=== PATIENT | female | born 1945 | race African-American/Black ===

== ENCOUNTER 2017-10-21 16:03 | Emergency (ER) | payer SELFPAY ==
[2017-10-21 16:04] VITALS: BP 127/80; PULSE 109; RESP 16; TEMP 37.4; O2SAT 99; BMI 26.8
--- NOTE | 2017-10-21 16:27 | ED.VISSUMM ---
- ER Visit Summary Date of Service: 10/21/17 Chief Complaint: Left leg pain and swelling History of Present Illness: The patient is a 72 F who recently moved to the from [facility]. She had a long plane ride on September 20. Patient is also currently being evaluated for cervical cancer and is seeing Dr. Bain at [facility]. Patient has been having waxing and waning left lower leg pain and swelling for the last 1 month. She states at times the calf will get very firm and painful. She has no symptoms above the knee. She denies chest pain or shortness of breath. She denies any recent injury. Physical Examination: Vital signs are grossly unremarkable. Heart rate triage was documented at 109. Head neck examination is unremarkable. Heart is regular rate and rhythm. Lung sounds are clear. Abdomen is soft with no tenderness. Firm masses palpable in the left lower quadrant. Lower extremity examination reveals mild edema to the lower portion of the left lower leg. There is no erythema or excessive warmth. She has full range of motion and strong pulses throughout. Test Results: [] Emergency Department Course and Treatment: Patient presents on a Monday afternoon when I do not have venous ultrasound available. This was discussed with patient and son at bedside. Should be written orders to come back tomorrow for an outpatient ultrasound. Patient is currently having vaginal bleeding and is already being treated for anemia. At this time we will hold off on any anticoagulants as all of her symptoms are below the knee. This was discussed at length with the patient and her son. Treatment Plan: [] Disposition: Discharge Impression: Left lower extremity edema This note was generated with [employer] dictation software. It may contain incorrect words, spelling, and punctuation that were not noted in review of the chart prior to signing ED Disposition - Plan for ED Patient: Chief Complaint: Lower Extremity Injury Referrals: Care Physician,No Primary [Primary Care Provider] -
--- NOTE | 2017-10-21 16:30 | ED.DEP ---
ED Disposition - Plan for ED Patient: Disposition: Home or Assisted Living Chief Complaint: Lower Extremity Injury Instructions: ED Leg Swelling Unilateral Additional Instructions: An order has been written for you to return tomorrow for an ultrasound of your leg to ensure no blood clot is present. Someone from the hospital will call you tomorrow morning with an appointment time.
== END 2017-10-21 17:11 | disposition home or self-care (01) ==
PROVIDERS: Emergency Provider Emergency Medicine
DX: R60.0 Localized edema (principal); M79.662 Pain in left lower leg; C53.9 Malignant neoplasm of cervix uteri, unspecified
CPT/HCPCS: 99282

== ENCOUNTER → 2017-10-23 10:41 | Outpatient (CLI) | payer SELFPAY ==
--- NOTE | 2017-10-23 10:44 | VDLE_ITS ---
Reason For Study: LEG PAIN RIGHT LEFT CFV is compressible, spontaneous, phasic, GSV is normal. competent and demonstrates normal CFV is compressible, spontaneous, phasic, augmentation. competent, and demonstrates normal Procedure augmentation. Exam performed in department. FV is compressible, spontaneous, phasic, competent and demonstrates normal augmentation. POP V is compressible, spontaneous, phasic, competent and demonstrates normal augmentation. T/P Trunk is compressible. PTV is compressible. LT PerV is compressible. Soleus vein dilated and non-compressible. Interpretation Summary Acute deep venous thrombosis left soleus vein. Patent and compressible left great saphenous vein. Normal flow patterns right common femoral vein. Ordering Physician: Sarah Cuevas Referring Physician: Sarah Cuevas Performed By: Tracey Matthews RVT
== END ==
PROVIDERS: Visit Provider Emergency Medicine
DX: R60.0 Localized edema (principal)
CPT/HCPCS: 93971

== ENCOUNTER 2017-10-23 11:07 | Emergency (ER) | payer SELFPAY ==
[2017-10-23 11:08] VITALS: BP 148/77; PULSE 105; RESP 17; TEMP 37.3; O2SAT 100; BMI 26.3
--- NOTE | 2017-10-23 12:36 | ED.VISSUMM ---
- ER Visit Summary Date of Service: 10/23/17 Chief Complaint: Leg DVT History of Present Illness: The patient is a 72 F who was seen on 324. She was set up for a duplex ultrasound. She had that performed today which demonstrates a peroneal DVT on the left. Patient is currently being evaluated for treatment of cervical cancer by Dr. Bain at [facility]. Her [id number] Dr. Chas Mcgarry is an WEIGHT ANALYST here at our hospital. Patient denies any chest pain or shortness of breath. She is currently having vaginal bleeding which she describes as spotting. Physical Examination: Afebrile vital signs are stable Gen: Well-nourished well-developed Head: Normocephalic atraumatic Eyes: Perrl EOMI ENT: TMs clear no rhinorrhea moist mucous membranes Neck: Supple no lymphadenopathy no JVD nontender CVS: Regular rate rhythm no murmurs normal S1-S2 Respiratory: No distress clear to auscultation bilaterally chest nontender Abdomen: Soft nontender nondistended normal bowel sounds no masses Back: Nontender Extremity: Is mild swelling the left leg. There is some mild tenderness to the calf. Skin: Normal color no rash Neuro: alert orientated ?3 CN II-XII intact normal strength sensation reflexes gait cerebellar Psych: Normal affect normal mood Test Results: The duplex ultrasound was reviewed Emergency Department Course and Treatment: The DVT appears below the knee. She has been taking a baby aspirin and will increase that to a full strength aspirin. As it is below the knee we will do serial ultrasounds. I spoke with Dr. Chas Mcgarry. I attempted to page and contact Dr. Bain but did not a call back yet. I provided a copy of the ultrasound to the patient to take to her oncologist appointment. Impression:. Left peroneal DVT This note was generated with [employer] dictation software. It may contain incorrect words, spelling, and punctuation that were not noted in review of the chart prior to signing ED Disposition - Plan for ED Patient: Disposition: Home or Assisted Living Chief Complaint: Lower Extremity Injury Instructions: ED DVT Referrals: Care Physician,No Primary [Primary Care Provider] - Additional Instructions: We will up with your oncologist Begin full strength aspirin daily You will need repeat ultrasound on October 26, October 30, and November 07. Unless the DVT propagates to above the knee then you will need to begin anticoagulant therapy. If DVT above the knee is diagnosed either follow-up with your oncologist or the emergency room for care.
[2017-10-23 12:59] VITALS: PULSE 94; RESP 16; O2SAT 97
== END 2017-10-23 13:11 | disposition home or self-care (01) ==
PROVIDERS: Emergency Provider Emergency Medicine
DX: I82.4Z2 Acute embolism and thrombosis of unspecified deep veins of left distal lower extremity (principal); C53.9 Malignant neoplasm of cervix uteri, unspecified; Z79.82 Long term (current) use of aspirin
CPT/HCPCS: 99282

== ENCOUNTER 2017-10-26 13:45 | Emergency (ER) | payer SELFPAY ==
[2017-10-26 13:46] VITALS: BP 117/54; PULSE 103; RESP 16; TEMP 37.2; O2SAT 99; BMI 26.6
--- NOTE | 2017-10-26 14:10 | RAD_ITS ---
STUDY: X-RAY - LUMBAR SPINE REASON FOR EXAM: Female, 72 years old. Low back pain TECHNIQUE: Three view(s) of the lumbar spine were obtained. COMPARISON: None FINDINGS: Normal lumbar lordosis. There is moderate dextroscoliosis. There is normal alignment of the vertebrae. There are small osteophytes scattered in the lumbar spine. Vertebral body heights are maintained. There is moderate disc space narrowing at L3-4 and L5-S1. There are large coarse calcifications in the lower abdomen and pelvis. There are nodular densities in the visualized lung bases. There is a 2.8 cm round calcification in the mid right abdomen. RAD/Lumbar Spine 2 or 3 Views IMPRESSION: No acute abnormalities are seen in the lumbar spine. There are no compression fractures. There are moderate degenerative disc changes at L3-4 and L5-S1. There are large coarse dystrophic calcifications in the lower abdomen and pelvis with a typical appearance of degenerated fibroids. Extension into the lower abdomen suggests marked enlargement of the uterus. There are nodular opacities in the visualized lung bases of unknown etiology. Chest radiographs and a possible chest CT should be considered. There is a 2.8 cm calcification in the mid right abdomen, likely a gallstone. Electronically Signed: Sarah Winter MD at 15:39 EDT Tel Direct: [phone], Service support ,
--- NOTE | 2017-10-26 14:41 | ED.VISSUMM ---
- ER Visit Summary Date of Service: 10/26/17 Chief Complaint: Left hip pain History of Present Illness: The patient is a 72 F who presents with left hip pain. When asked to localize where she has discomfort she points to the superior posterior iliac spine. She denies bowel bladder dysfunction. She denies saddle paresthesia anesthesia. She denies radicular pain. She denies foot drop. She denies thigh weakness going up or down steps. There is no history of trauma. She denies fever, chills night sweats. She denies prior episode of discomfort. She denies history of any medical problems. She was recently diagnosed with a solitary distal clot in the peroneal vein. She has serial venous duplex studies ordered. She denies dysuria, frequency, urgency or hematuria. Physical Examination: Vital signs are remarkable for slight elevation blood pressure 103. She appears in no discomfort and reports she has no pain presently. Straight leg test is negative. Crossover test is negative. Patella and ankle reflexes are 2+ and symmetric. EHL is intact. DP and PT pulses are palpable and symmetric. She has minimal discomfort left lower back to palpation. She denies any altered sensation. Abdomen is soft nontender. There is no past medically. There is no rash or lesions to suggest herpes varicella-zoster. There is no evidence of trauma. Test Results: Three-view x-ray of the LS spine was obtained which reveals scoliosis and significant degenerative disc disease with spurring. Also significant amount of stool and concerned she may have had a contrast study recently. Emergency Department Course and Treatment: Based on patient's age findings x-ray was obtained. Treatment Plan: Since she is elderly was instructed to take Tylenol since she has no pain at the present time if the pain recurs. Disposition: Discharge to home Impression: Left low back pain of muscular etiology Scoliosis Degenerative disc disease This note was generated with [employer] dictation software. It may contain incorrect words, spelling, and punctuation that were not noted in review of the chart prior to signing ED Disposition - Plan for ED Patient: Disposition: Home or Assisted Living Chief Complaint: Lower Extremity Injury Instructions: Osteoarthritis: Coping with Pain, Osteoarthritis: Common Sites Referrals: Care Physician,No Primary [Primary Care Provider] - Annabelle Franco DO [STAFF PHYSICIAN] - As Needed Additional Instructions: Take Tylenol for pain
--- NOTE | 2017-10-26 14:47 | ED.DCSUM_ITS ---
- ER Visit Summary Date of Service: 10/26/17 Chief Complaint: Left hip pain History of Present Illness: The patient is a 72 F who presents with left hip pain. When asked to localize where she has discomfort she points to the superior posterior iliac spine. She denies bowel bladder dysfunction. She denies saddle paresthesia anesthesia. She denies radicular pain. She denies foot drop. She denies thigh weakness going up or down steps. There is no history of trauma. She denies fever, chills night sweats. She denies prior episode of discomfort. She denies history of any medical problems. She was recently diagnosed with a solitary distal clot in the peroneal vein. She has serial venous duplex studies ordered. She denies dysuria, frequency, urgency or hematuria. Physical Examination: Vital signs are remarkable for slight elevation blood pressure 103. She appears in no discomfort and reports she has no pain presently. Straight leg test is negative. Crossover test is negative. Patella and ankle reflexes are 2+ and symmetric. EHL is intact. DP and PT pulses are palpable and symmetric. She has minimal discomfort left lower back to palpation. She denies any altered sensation. Abdomen is soft nontender. There is no past medically. There is no rash or lesions to suggest herpes varicella-zoster. There is no evidence of trauma. Test Results: Three-view x-ray of the LS spine was obtained which reveals scoliosis and significant degenerative disc disease with spurring. Also significant amount of stool and concerned she may have had a contrast study recently. Emergency Department Course and Treatment: Based on patient's age findings x- ray was obtained. Treatment Plan: Since she is elderly was instructed to take Tylenol since she has no pain at the present time if the pain recurs. Disposition: Discharge to home Impression: Left low back pain of muscular etiology Scoliosis Degenerative disc disease This note was generated with [employer] dictation software. It may contain incorrect words, spelling, and punctuation that were not noted in review of the chart prior to signing ED Disposition - Plan for ED Patient: Disposition: Home or Assisted Living Chief Complaint: Lower Extremity Injury Instructions: Osteoarthritis: Coping with Pain, Osteoarthritis: Common Sites Referrals: Care Physician,No Primary [Primary Care Provider] - Annabelle Franco DO [STAFF PHYSICIAN] - As Needed Additional Instructions: Take Tylenol for pain
--- NOTE | 2017-10-26 14:59 | ED.RN ---
REVIEWED D/C INSTRUCTIONS, FOLLOW UP CARE, AND S/S THAT WOULD WARRANT A RETURN TO THE ED WITH PT. PT VERBALIZED AN UNDERSTANDING AND DENIES FURTHER QUESTIONS FOR THIS RN.
[2017-10-26 15:08] VITALS: PULSE 92; RESP 16
== END 2017-10-26 15:15 | disposition home or self-care (01) ==
PROVIDERS: Emergency Provider Emergency Medicine
DX: M41.87 Other forms of scoliosis, lumbosacral region (principal); M51.37 Other intervertebral disc degeneration, lumbosacral region; Z79.82 Long term (current) use of aspirin
CPT/HCPCS: 72100; 99282

== ENCOUNTER 2017-10-30 14:30 | Observation (INO) | payer SELFPAY ==
[2017-10-30 14:31] VITALS: BP 111/62; PULSE 95; RESP 16; TEMP 36.8; O2SAT 100; BMI 26.4
--- NOTE | 2017-10-30 15:06 | ED.VISSUMM ---
- ER Visit Summary Date of Service: 10/30/17 Chief Complaint: Left lower extremity pain History of Present Illness: The patient is a 72 F who was diagnosed with a DVT a week ago, it was in her distal calf, she has cervical cancer that is recently diagnosed and still in the process of being staged, she has follow-up appointments set for that, and she traveled to the [facility] from [facility] 1-2 months ago. She was supposed to get serial ultrasounds, she missed the second one, and had it done today, it shows extension of the clot from the left soleus vein now involving the gastroc and peroneal as well. The right side is clear. She states the swelling she had in the left lower extremity is gone, she still has some mild pain but no chest pain or shortness of breath, lightheadedness. She is taking aspirin and no anticoagulants at this time. She has light daily vaginal bleeding related to her cervical cancer, she is bleeding from nowhere else. She otherwise feels well. Physical Examination: Well-appearing no acute distress. Vital signs are normal including heart rate 95, respirations 16, pulse ox 100 on room air. She has trace edema both lower extremities to the mid shins, mild calf tenderness on the left no palpable cords, otherwise benign and neurovascularly intact distally with full range of motion of both lower extremities. Lungs are clear, heart is regular without tachycardia. Test Results: Hemoglobin 7.0. Basic labs obtained. Emergency Department Course and Treatment: Discussed with Dr. Bain, her gynecologic oncologist at [facility], who agrees that she should probably have an IVC filter, given that she is already anemic and has constant bleeding from a site that would be difficult to control the bleeding from. Discussed with Dr. Pathak with surgery here, who does IVC filters and would be happy to place one for her. Soonest availability is tomorrow, she is stable and does have a relatively distal DVT, testing shows that it has progressed, but it is still distal to the trifurcation so waiting until tomorrow is certainly reasonable. I discussed with her family, with whom she lives, they are both physicians and it will be difficult for them to get her here at the right time tomorrow, so they are asking for inpatient observation, discussed with Dr. Dean who is amenable. Of note, she is clinically and hemodynamically very stable, and I do not think needs to be emergently transfused at this time. Treatment Plan: As above Disposition: Inpatient observation MedSurg Impression: Left lower extremity DVT acute Abnormal cervical bleeding secondary to cervical cancer Chronic blood loss anemia This note was generated with [employer] dictation software. It may contain incorrect words, spelling, and punctuation that were not noted in review of the chart prior to signing ED Disposition - Plan for ED Patient: Disposition: Acute Care Hospital [facility] Chief Complaint: Lower Extremity Injury Referrals: NOT,DEFINED [NON-STAFF] -
--- NOTE | 2017-10-30 15:10 | ED.DCSUM_ITS ---
- ER Visit Summary Date of Service: 10/30/17 Chief Complaint: Left lower extremity pain History of Present Illness: The patient is a 72 F who was diagnosed with a DVT a week ago, it was in her distal calf, she has cervical cancer that is recently diagnosed and still in the process of being staged, she has follow-up appointments set for that, and she traveled to the [facility] from [facility] 1- 2 months ago. She was supposed to get serial ultrasounds, she missed the second one, and had it done today, it shows extension of the clot from the left soleus vein now involving the gastroc and peroneal as well. The right side is clear. She states the swelling she had in the left lower extremity is gone, she still has some mild pain but no chest pain or shortness of breath, lightheadedness. She is taking aspirin and no anticoagulants at this time. She has light daily vaginal bleeding related to her cervical cancer, she is bleeding from nowhere else. She otherwise feels well. Physical Examination: Well-appearing no acute distress. Vital signs are normal including heart rate 95, respirations 16, pulse ox 100 on room air. She has trace edema both lower extremities to the mid shins, mild calf tenderness on the left no palpable cords, otherwise benign and neurovascularly intact distally with full range of motion of both lower extremities. Lungs are clear, heart is regular without tachycardia. Test Results: Hemoglobin 7.0. Basic labs obtained. Emergency Department Course and Treatment: Discussed with Dr. Bain, her gynecologic oncologist at [facility], who agrees that she should probably have an IVC filter, given that she is already anemic and has constant bleeding from a site that would be difficult to control the bleeding from. Discussed with Dr. Pathak with surgery here, who does IVC filters and would be happy to place one for her. Soonest availability is tomorrow, she is stable and does have a relatively distal DVT, testing shows that it has progressed, but it is still distal to the trifurcation so waiting until tomorrow is certainly reasonable. I discussed with her family, with whom she lives, they are both physicians and it will be difficult for them to get her here at the right time tomorrow, so they are asking for inpatient observation, discussed with Dr. Dean who is amenable. Of note, she is clinically and hemodynamically very stable, and I do not think needs to be emergently transfused at this time. Treatment Plan: As above Disposition: Inpatient observation MedSurg Impression: Left lower extremity DVT acute Abnormal cervical bleeding secondary to cervical cancer Chronic blood loss anemia This note was generated with [employer] dictation software. It may contain incorrect words, spelling, and punctuation that were not noted in review of the chart prior to signing ED Disposition - Plan for ED Patient: Disposition: Acute Care Hospital [facility] Chief Complaint: Lower Extremity Injury Referrals: NOT,DEFINED [NON-STAFF] -
[2017-10-30 17:23] LABS: Absolute Lymphocyte Count 2.37 X10^3/ul (0.83-4.51); Absolute Neutrophil Count 9.6 X10^3/uL (2.0-7.7); Basophil# 0.03 X10^3/uL; Basophil% 0.2 % (0-1); Eosinophil# 0.12 X10^3/uL; Eosinophils% 0.9 % (0-5); Hematocrit 23.9 % (37-47); Lymphocyte # 2.37 X10^3/ul (4.0); Lymphocyte % 18.2 % (19-41); Mean Corp Hgb Conc 29.3 g/gl (32-36); Mean Corpuscular Hgb 22.4 pg (27.0-32.0); Mean Corpuscular Volume 76.4 fL (81-99); Mean Platelet Vol. 9.4 fl (6.2-12.0); Monocyte# 0.94 X10^3/uL; Monocyte% 7.2 % (0-10); Neutrophil # 9.56 X10^3/uL (2.7-7.7); Neutrophil % 73.3 % (47-70); POSITIVE COUNT NO; POSITIVE DIFFERENTIAL NO; POSITIVE MORPHOLOGY NO; Platelet Count 349 K/mm3 (150-450); RBC Distribution Width CV 19.9 % (11.6-14.6); RBC Distribution Width SD 54.9 fl (35.1-43.9); Red Blood Count 3.13 M/mm3 (4.2-5.4); White Blood Count 13.1 K/mm3 (4.4-11.0)
[2017-10-30 17:32] LABS: Anion Gap 9 (5-15); BUN 9 mg/dL (7-18); BUN/Creat Ratio 11.7 RATIO (10-20); Calcium,Total 8.2 mg/dL (8.5-10.1); Chloride 101 mmol/L (98-107); Creatinine, Serum 0.77 mg/dL (0.55-1.02); EST Glomerular Filtration Rate 78 mL/min (>60); Est Glom Filt Rate - Afr Amer 95 mL/min (>60); Glucose 125 mg/dL (74-106); Potassium 4.4 mmol/L (3.5-5.1); Sodium Level 134 mmol/L (136-145)
--- NOTE | 2017-10-30 17:40 | PCM.HP.STD ---
Problem List (1) Acute DVT (deep venous thrombosis) Status: Acute Qualifiers: DVT location: lower extremity Affected thrombotic vein of extremity: unspecified lower extremity distal vein Laterality: left Qualified Code(s): I82.4Z2 - Acute embolism and thrombosis of unspecified deep veins of left distal lower extremity Comment: L soleus, gastroc, peroneal veins (2) Cervical cancer Status: Chronic Comment: being staged/treated at [facility] SILICA FILTER OPERATOR ONC Dr. Bain (3) Anemia Status: Acute Qualifiers: Iron deficiency anemia type: chronic blood loss History of Present Illness Date of Admission: 10/30/17 Chief Complaint: DVT The patient is a 72 year old F who is referred from outpatient ultrasound for management of LLE DVT. The patient has past history of cervical cancer, for which she is undergoing staging procedures with SILICA FILTER OPERATOR oncology at [facility], Dr. Bain. She had ultrasound left lower extremity 1 week ago which revealed distal calf DVT. She was to follow-up with serial ultrasounds, but missed the second one, had it done today, which revealed extension of the left lower extremity clot from the left soleus vein to now involving more proximal gastrocnemius and peroneal vein. Right lower extremity is clear. She denies any chest pain, pleuritic pain, dyspnea, lightheadedness, palpitations. She is currently on aspirin. She has daily vaginal bleeding related to cervical cancer, no other bleeding. She otherwise feels well. The emergency department physician kindly spoke with her SILICA FILTER OPERATOR oncologist at [facility], and an IVC filter was advised. This is scheduled for tomorrow morning by Dr. Pathak and the patient will be observed overnight for planned procedure.[] Past Medical History Past Medical History (Chronic Problems): Chronic Problems Cervical cancer (Chronic) being staged/treated at [facility] SILICA FILTER OPERATOR ONC Dr. Bain Allergies No Known Allergies Allergy (Verified 10/30/17 14:34) Home Medications: Ambulatory Orders Medication Instructions Recorded Aspirin 325 mg PO DAILY@0800 10/30/17 Psychiatric History: No pertinent psych hx SILICA FILTER OPERATOR History: cervical cancer Smoking Status: Never smoker - *Family History Maternal History Items: No pertinent history Paternal History Items: No pertinent history Review of Systems Gynecological: Reports: Vaginal bleeding Comment: as per HPI VTE Information - Inpt Only VTE Present on Admission: Yes - LLE DVT VTE Mechan Device Prophylaxis: None VTE Pharm Prophylaxis ordered?: No Reason prophylaxis not ordered:: Medical Contraindication - vag bleeding Patient Problems: Active and Suspected Problems Acute DVT (deep venous thrombosis) (Acute) L soleus, gastroc, peroneal veins Anemia (Acute) - Physical Exam General: Alert, Oriented x3 Neck: No JVD, Negative Carotid Bruits Lungs: Clear to auscultation Cardiovascular: Regular rate, Regular Rhythm, Normal S1, Normal S2, - - soft flow m over LVOT Extremities: - - L LE mildly tender mid calf cord palpable bilateral mild symmetric edema OA changes bilateral knees Vital Signs Temp Pulse Resp BP Pulse Ox 98.3 F 95 16 111/62 100 10/30/17 14:31 10/30/17 14:31 10/30/17 14:31 10/30/17 14:31 10/30/17 14:31 Oxygen Delivery Method Room Air Weight: 164 lb Body Mass Index (BMI) 26.4 Laboratory Tests Past 24 Hrs 10/30/17 10/30/17 16:50 16:50 WBC 13.1 H RBC 3.13 L Hgb 7.0 L Hct 23.9 L MCV 76.4 L MCH 22.4 L MCHC 29.3 L RDW 19.9 H RDW Differential 54.9 H Plt Count 349 MPV 9.4 Immature Gran % (Auto) 0.200 Neut % (Auto) 73.3 H Lymph % (Auto) 18.2 L [place] % (Auto) 7.2 Eos % (Auto) 0.9 Baso % (Auto) 0.2 Absolute Neuts (auto) 9.6 H Absolute Lymphs (auto) 2.37 Total Counted Not Reportable Sodium 134 L Potassium 4.4 Chloride 101 Carbon Dioxide 24.0 Anion Gap 9 BUN 9 Creatinine 0.77 Estim Creat Clear Calc 46.90 Est GFR (MDRD) Af Amer 95 Est GFR (MDRD) Non-Af 78 BUN/Creatinine Ratio 11.7 Glucose 125 H Calcium 8.2 L Assessment/Plan Active and Suspected Problems Acute DVT (deep venous thrombosis) (Acute) L soleus, gastroc, peroneal veins Anemia (Acute) Pleasant 72 y o patient with acute left lower extremity DVT in the setting of known cervical cancer, chronic vaginal bleeding, chronic blood loss anemia, who requires IVC filter placement for management. 1. Left lower extremity DVT 2. Chronic vaginal bleeding/chronic blood loss anemia. Asymptomatic in this regard Plan: Observe, medical supportive care overnight, n.p.o. post midnight, hydration post midnight, with planned placement of IVC filter tomorrow per Dr. Pathak Holding ASA
--- NOTE | 2017-10-30 17:45 | HP.PCM_ITS ---
Problem List (1) Acute DVT (deep venous thrombosis) Status: Acute Qualifiers: DVT location: lower extremity Affected thrombotic vein of extremity: unspecified lower extremity distal vein Laterality: left Qualified Code(s): I82.4Z2 - Acute embolism and thrombosis of unspecified deep veins of left distal lower extremity Comment: L soleus, gastroc, peroneal veins (2) Cervical cancer Status: Chronic Comment: being staged/treated at [facility] ACCELERATOR OPERATOR ONC Dr. Bain (3) Anemia Status: Acute Qualifiers: Iron deficiency anemia type: chronic blood loss History of Present Illness Date of Admission: 10/30/17 Chief Complaint: DVT The patient is a 72 year old F who is referred from outpatient ultrasound for management of LLE DVT. The patient has past history of cervical cancer, for which she is undergoing staging procedures with ACCELERATOR OPERATOR oncology at [facility], Dr. Bain. She had ultrasound left lower extremity 1 week ago which revealed distal calf DVT. She was to follow-up with serial ultrasounds, but missed the second one, had it done today, which revealed extension of the left lower extremity clot from the left soleus vein to now involving more proximal gastrocnemius and peroneal vein. Right lower extremity is clear. She denies any chest pain, pleuritic pain, dyspnea, lightheadedness, palpitations. She is currently on aspirin. She has daily vaginal bleeding related to cervical cancer, no other bleeding. She otherwise feels well. The emergency department physician kindly spoke with her ACCELERATOR OPERATOR oncologist at [facility], and an IVC filter was advised. This is scheduled for tomorrow morning by Dr. Pathak and the patient will be observed overnight for planned procedure.[] Past Medical History Past Medical History (Chronic Problems): Chronic Problems Cervical cancer (Chronic) being staged/treated at [facility] ACCELERATOR OPERATOR ONC Dr. Bain Allergies No Known Allergies Allergy (Verified 10/30/17 14:34) Home Medications: Ambulatory Orders Medication Instructions Recorded Aspirin 325 mg PO DAILY@0800 10/30/17 Psychiatric History: No pertinent psych hx ACCELERATOR OPERATOR History: cervical cancer Smoking Status: Never smoker - *Family History Maternal History Items: No pertinent history Paternal History Items: No pertinent history Review of Systems Gynecological: Reports: Vaginal bleeding Comment: as per HPI VTE Information - Inpt Only VTE Present on Admission: Yes - LLE DVT VTE Mechan Device Prophylaxis: None VTE Pharm Prophylaxis ordered?: No Reason prophylaxis not ordered:: Medical Contraindication - vag bleeding Patient Problems: Active and Suspected Problems Acute DVT (deep venous thrombosis) (Acute) L soleus, gastroc, peroneal veins Anemia (Acute) - Physical Exam General: Alert, Oriented x3 Neck: No JVD, Negative Carotid Bruits Lungs: Clear to auscultation Cardiovascular: Regular rate, Regular Rhythm, Normal S1, Normal S2, - - soft flow m over LVOT Extremities: - - L LE mildly tender mid calf cord palpable bilateral mild symmetric edema OA changes bilateral knees Vital Signs Temp Pulse Resp BP Pulse Ox 98.3 F 95 16 111/62 100 10/30/17 14:31 10/30/17 14:31 10/30/17 14:31 10/30/17 14:31 10/30/17 14:31 Oxygen Delivery Method Room Air Weight: 164 lb Body Mass Index (BMI) 26.4 Laboratory Tests Past 24 Hrs 10/30/17 10/30/17 16:50 16:50 WBC 13.1 H RBC 3.13 L Hgb 7.0 L Hct 23.9 L MCV 76.4 L MCH 22.4 L MCHC 29.3 L RDW 19.9 H RDW Differential 54.9 H Plt Count 349 MPV 9.4 Immature Gran % (Auto) 0.200 Neut % (Auto) 73.3 H Lymph % (Auto) 18.2 L [place] % (Auto) 7.2 Eos % (Auto) 0.9 Baso % (Auto) 0.2 Absolute Neuts (auto) 9.6 H Absolute Lymphs (auto) 2.37 Total Counted Not Reportable Sodium 134 L Potassium 4.4 Chloride 101 Carbon Dioxide 24.0 Anion Gap 9 BUN 9 Creatinine 0.77 Estim Creat Clear Calc 46.90 Est GFR (MDRD) Af Amer 95 Est GFR (MDRD) Non-Af 78 BUN/Creatinine Ratio 11.7 Glucose 125 H Calcium 8.2 L Assessment/Plan Active and Suspected Problems Acute DVT (deep venous thrombosis) (Acute) L soleus, gastroc, peroneal veins Anemia (Acute) Pleasant 72 y o patient with acute left lower extremity DVT in the setting of known cervical cancer, chronic vaginal bleeding, chronic blood loss anemia, who requires IVC filter placement for management. 1. Left lower extremity DVT 2. Chronic vaginal bleeding/chronic blood loss anemia. Asymptomatic in this regard Plan: Observe, medical supportive care overnight, n.p.o. post midnight, hydration post midnight, with planned placement of IVC filter tomorrow per Dr. Pathak Holding ASA
[2017-10-30 18:10] VITALS: BMI 26.5
[2017-10-30 18:14] VITALS: BP 137/73; PULSE 87; RESP 16; O2SAT 99
[2017-10-30 18:52] VITALS: BP 140/67; PULSE 92; RESP 18; TEMP 37.3; O2SAT 99
[2017-10-30 18:53] VITALS: BMI 26.1
[2017-10-30 19:27] VITALS: PULSE 95
[2017-10-30 20:52] VITALS: BP 133/63; PULSE 94; RESP 18; TEMP 37.1; O2SAT 100
[2017-10-30 23:27] VITALS: PULSE 98
[2017-10-31] VITALS (20 sets, daily range): BP systolic 122–152; BP diastolic 63–78; PULSE 82–94; RESP 16–20; TEMP 36.7–37.5; O2SAT 96–100; BMI 26.0
[2017-10-31 00:08] LABS: Hematocrit 20.9 % (37-47); Hemoglobin 6.1 g/dl (12.0-15.0); Mean Corp Hgb Conc 29.2 g/gl (32-36); Mean Corpuscular Hgb 22.4 pg (27.0-32.0); Mean Corpuscular Volume 76.8 fL (81-99); Mean Platelet Vol. 9.7 fl (6.2-12.0); Platelet Count 383 K/mm3 (150-450); RBC Distribution Width CV 19.6 % (11.6-14.6); RBC Distribution Width SD 52.3 fl (35.1-43.9); Red Blood Count 2.72 M/mm3 (4.2-5.4); Scan Indicated on CBC? Y/N NO; White Blood Count 9.9 K/mm3 (4.4-11.0)
[2017-10-31] MEDS: 0.9% Normal Saline 1,000 ML 75 ML IV (01:01)
--- NOTE | 2017-10-31 05:00 | EKG12_ITS ---
Test Reason : AM EKG Blood Pressure : / mmHG Vent. Rate : 088 BPM Atrial Rate : 088 BPM P-R Int : 132 ms QRS Dur : 070 ms QT Int : 358 ms P-R-T Axes : 055 075 069 degrees QTc Int : 433 ms Normal sinus rhythm Normal ECG No previous ECGs available Confirmed by TREVIN STARKS, GABRIELA ([id number]), story editor JOSE ENRIQUE HILLS ([id number]) on 11/03/2017 1:08:16 PM Referred By: DR ARMENDARIZ Confirmed By:GABRIELA ZHONG MD
--- NOTE | 2017-10-31 08:18 | PCM.CONS.GEN ---
Problem List (1) Acute DVT (deep venous thrombosis) Status: Acute Qualifiers: DVT location: lower extremity Affected thrombotic vein of extremity: unspecified lower extremity distal vein Laterality: left Qualified Code(s): I82.4Z2 - Acute embolism and thrombosis of unspecified deep veins of left distal lower extremity Comment: L soleus, gastroc, peroneal veins (2) Cervical cancer Status: Chronic Comment: being staged/treated at [facility] SHOVE UP ONC Dr. Bain (3) Anemia Status: Acute Qualifiers: Iron deficiency anemia type: chronic blood loss Reason for Consult Date of Consultation: 10/31/17 Reason for Consultation: Acute left lower extremity DVT. In need of IVC filter. History of Present Illness: The patient is a 72 year old F who presents with decreased hemoglobin and progression of her left lower extremity DVT. Patient had noted increased swelling and pain in the left lower extremity 1 week ago. A Left lower extremity duplex was obtained demonstrating acute DVT. Patient was to have a follow- up ultrasound yesterday at an outside facility which demonstrated shows extension of the clot from the left soleus vein now involving the gastroc and peroneal as well. The right side was negative. Patient was sent to the ED. Patient was also noted to have a hemoglobin of 7.0 in the ED. She was admitted for observation. Patient has received 1 unit of PRBC. Her hemoglobin this morning was 6.1. She is currently receiving an additional unit of PRBC. Patient notes she takes an iron supplement at home as well as a full strength ASA. Patient currently notes mild discomfort of the left lower extremity. She explains the discomfort as restless. Patient denies previous history of blood clots. She denies previous history of blood transfusions. Patient also notes a new diagnosis of cervical cancer. She is currently undergoing the steps to stage this cancer. Patient notes she sees a SHOVE UP from [facility], Dr. Bill Bain. She is scheduled for an MRI on . Patient notes previous fibroid removal, otherwise no previous surgical history. She denies other home medications. Patient notes she is from [facility]. She cam to the [facility] approximately 1-2 months ago secondary to new vaginal bleeding symptoms. Patient is a relation of Dr. Beckie Mcgarry. Past Medical History Past Medical History (Chronic Problems): Chronic Problems Cervical cancer (Chronic) being staged/treated at [facility] SHOVE UP ONC Dr. Bain Allergies No Known Allergies Allergy (Verified 10/30/17 14:34) Home Medications: Ambulatory Orders Medication Instructions Recorded Aspirin 325 mg PO DAILY@0800 10/30/17 Ferrous Sulfate 325 mg PO TIDCM 10/30/17 Psychiatric History: No pertinent psych hx SHOVE UP History: cervical cancer Lives: With Family Smoking Status: Never smoker - *Family History Maternal History Items: No pertinent history Paternal History Items: No pertinent history Review of Systems Constitutional: Denies: Chills, Fever, Weight Change HEENT: Denies: Head Aches, Sinus Congestion, Sinus Drainage Cardiovascular: Denies: Chest Pain, Palpitations Respiratory: Denies: Cough, Shortness of breath at rest, Sputum production Gastrointestinal: Denies: Abdominal Pain, Nausea, Vomiting Genitourinary: Denies: Dysuria Gynecological: Reports: Vaginal bleeding Musculoskeletal: Reports: Leg Pain Skin: Denies: Rash, Wounds Neurological: Denies: Numbness, Tingling, Focal weakness Psychiatric: Denies: Anxiety, Depression, Homicidal Ideations, Suicidal Ideations Hematologic/ Lymphatic: Reports: Anemia Patient Problems: Active and Suspected Problems Acute DVT (deep venous thrombosis) (Acute) L soleus, gastroc, peroneal veins Anemia (Acute) - Physical Exam General: Alert, Oriented x3, Cooperative HEENT: Atraumatic, PERRLA, EOMI, Normocephalic Neck: Supple, No JVD, Negative Carotid Bruits Lungs: Clear to auscultation, Normal air movement Cardiovascular: Regular rate, No murmurs Abdomen: Bowel Sounds Present, Soft, Non Tender Extremities: Tenderness - Left calf Skin: No rashes, No breakdown Musculoskeletal: No Tenderness to Palpation of Joints or Extremities Neurological: Neuro grossly intact Psych/Mental Status: Normal Affect, Appropriate Vital Signs Temp Pulse Resp BP Pulse Ox 98.6 F 91 20 H 131/70 H 100 10/31/17 08:03 10/31/17 08:03 10/31/17 06:27 10/31/17 08:03 10/31/17 06:27 Oxygen Delivery Method Room Air Weight: 162 lb 0.636 oz Body Mass Index (BMI) 26.0 Intake and Output for Last 24 Hours 10/29/17 10/30/17 10/31/17 23:59 23:59 23:59 Intake Total 100 / 100 488 / 488 Balance 100 / 100 488 / 488 Laboratory Tests Past 24 Hrs 10/30/17 10/30/17 23:50 23:50 WBC 9.9 RBC 2.72 L Hgb 6.1 L Hct 20.9 L MCV 76.8 L MCH 22.4 L MCHC 29.2 L RDW 19.6 H RDW Differential 52.3 H Plt Count 383 MPV 9.7 Blood Type O NEGATIVE Antibody Screen NEGATIVE Crossmatch See Detail Assessment/Plan Active and Suspected Problems Acute DVT (deep venous thrombosis) (Acute) L soleus, gastroc, peroneal veins Anemia (Acute) I have been consulted in conjunction with Dr. Pathak. I have discussed this patient with Dr. Pathak. Impression: Acute progressive deep vein thrombosis, left lower extremity. Anemia, decreased hemoglobin. ASA contraindicated. Plan: Dr. Pathak will independently evaluate this patient. Dr. Pathak will plan to perform an inferior vena cava filter placement. Procedure details, risks and benefits have been explained to the patient. Patient verbally understands and has had the opportunity to ask and have questions answered. I will contact MRI to verify if filter placement will be a concern for up coming imaging scheduled. Thank you for the opportunity to participate in this patient's care. My recommendations will be available via electronic medical records.
--- NOTE | 2017-10-31 08:30 | CON.PCM_ITS ---
Problem List (1) Acute DVT (deep venous thrombosis) Status: Acute Qualifiers: DVT location: lower extremity Affected thrombotic vein of extremity: unspecified lower extremity distal vein Laterality: left Qualified Code(s): I82.4Z2 - Acute embolism and thrombosis of unspecified deep veins of left distal lower extremity Comment: L soleus, gastroc, peroneal veins (2) Cervical cancer Status: Chronic Comment: being staged/treated at [facility] SWEATBAND MAKER ONC Dr. Bain (3) Anemia Status: Acute Qualifiers: Iron deficiency anemia type: chronic blood loss Reason for Consult Date of Consultation: 10/31/17 Reason for Consultation: Acute left lower extremity DVT. In need of IVC filter. History of Present Illness: The patient is a 72 year old F who presents with decreased hemoglobin and progression of her left lower extremity DVT. Patient had noted increased swelling and pain in the left lower extremity 1 week ago. A Left lower extremity duplex was obtained demonstrating acute DVT. Patient was to have a follow- up ultrasound yesterday at an outside facility which demonstrated shows extension of the clot from the left soleus vein now involving the gastroc and peroneal as well. The right side was negative. Patient was sent to the ED. Patient was also noted to have a hemoglobin of 7.0 in the ED. She was admitted for observation. Patient has received 1 unit of PRBC. Her hemoglobin this morning was 6.1. She is currently receiving an additional unit of PRBC. Patient notes she takes an iron supplement at home as well as a full strength ASA. Patient currently notes mild discomfort of the left lower extremity. She explains the discomfort as restless. Patient denies previous history of blood clots. She denies previous history of blood transfusions. Patient also notes a new diagnosis of cervical cancer. She is currently undergoing the steps to stage this cancer. Patient notes she sees a SWEATBAND MAKER from [facility], Dr. Bill Bain. She is scheduled for an MRI on . Patient notes previous fibroid removal, otherwise no previous surgical history. She denies other home medications. Patient notes she is from [facility]. She cam to the [facility] approximately 1-2 months ago secondary to new vaginal bleeding symptoms. Patient is a relation of Dr. Beckie Mcgarry. Past Medical History Past Medical History (Chronic Problems): Chronic Problems Cervical cancer (Chronic) being staged/treated at [facility] SWEATBAND MAKER ONC Dr. Bain Allergies No Known Allergies Allergy (Verified 10/30/17 14:34) Home Medications: Ambulatory Orders Medication Instructions Recorded Aspirin 325 mg PO DAILY@0800 10/30/17 Ferrous Sulfate 325 mg PO TIDCM 10/30/17 Psychiatric History: No pertinent psych hx SWEATBAND MAKER History: cervical cancer Lives: With Family Smoking Status: Never smoker - *Family History Maternal History Items: No pertinent history Paternal History Items: No pertinent history Review of Systems Constitutional: Denies: Chills, Fever, Weight Change HEENT: Denies: Head Aches, Sinus Congestion, Sinus Drainage Cardiovascular: Denies: Chest Pain, Palpitations Respiratory: Denies: Cough, Shortness of breath at rest, Sputum production Gastrointestinal: Denies: Abdominal Pain, Nausea, Vomiting Genitourinary: Denies: Dysuria Gynecological: Reports: Vaginal bleeding Musculoskeletal: Reports: Leg Pain Skin: Denies: Rash, Wounds Neurological: Denies: Numbness, Tingling, Focal weakness Psychiatric: Denies: Anxiety, Depression, Homicidal Ideations, Suicidal Ideations Hematologic/ Lymphatic: Reports: Anemia Patient Problems: Active and Suspected Problems Acute DVT (deep venous thrombosis) (Acute) L soleus, gastroc, peroneal veins Anemia (Acute) - Physical Exam General: Alert, Oriented x3, Cooperative HEENT: Atraumatic, PERRLA, EOMI, Normocephalic Neck: Supple, No JVD, Negative Carotid Bruits Lungs: Clear to auscultation, Normal air movement Cardiovascular: Regular rate, No murmurs Abdomen: Bowel Sounds Present, Soft, Non Tender Extremities: Tenderness - Left calf Skin: No rashes, No breakdown Musculoskeletal: No Tenderness to Palpation of Joints or Extremities Neurological: Neuro grossly intact Psych/Mental Status: Normal Affect, Appropriate Vital Signs Temp Pulse Resp BP Pulse Ox 98.6 F 91 20 H 131/70 H 100 10/31/17 08:03 10/31/17 08:03 10/31/17 06:27 10/31/17 08:03 10/31/17 06:27 Oxygen Delivery Method Room Air Weight: 162 lb 0.636 oz Body Mass Index (BMI) 26.0 Intake and Output for Last 24 Hours 10/29/17 10/30/17 10/31/17 23:59 23:59 23:59 Intake Total 100 / 100 488 / 488 Balance 100 / 100 488 / 488 Laboratory Tests Past 24 Hrs 10/30/17 10/30/17 23:50 23:50 WBC 9.9 RBC 2.72 L Hgb 6.1 L Hct 20.9 L MCV 76.8 L MCH 22.4 L MCHC 29.2 L RDW 19.6 H RDW Differential 52.3 H Plt Count 383 MPV 9.7 Blood Type O NEGATIVE Antibody Screen NEGATIVE Crossmatch See Detail Assessment/Plan Active and Suspected Problems Acute DVT (deep venous thrombosis) (Acute) L soleus, gastroc, peroneal veins Anemia (Acute) I have been consulted in conjunction with Dr. Pathak. I have discussed this patient with Dr. Pathak. Impression: Acute progressive deep vein thrombosis, left lower extremity. Anemia , decreased hemoglobin. ASA contraindicated. Plan: Dr. Pathak will independently evaluate this patient. Dr. Pathak will plan to perform an inferior vena cava filter placement. Procedure details, risks and benefits have been explained to the patient. Patient verbally understands and has had the opportunity to ask and have questions answered. I will contact MRI to verify if filter placement will be a concern for up coming imaging scheduled. Thank you for the opportunity to participate in this patient's care. My recommendations will be available via electronic medical records.
[2017-10-31 10:57] LABS: Hematocrit 30.8 % (37-47); Hemoglobin 9.7 g/dl (12.0-15.0); Mean Corp Hgb Conc 31.5 g/gl (32-36); Mean Corpuscular Hgb 24.6 pg (27.0-32.0); Mean Corpuscular Volume 78.2 fL (81-99); Mean Platelet Vol. 9.8 fl (6.2-12.0); Platelet Count 367 K/mm3 (150-450); RBC Distribution Width CV 19.7 % (11.6-14.6); RBC Distribution Width SD 53.7 fl (35.1-43.9); Red Blood Count 3.94 M/mm3 (4.2-5.4); White Blood Count 11.3 K/mm3 (4.4-11.0)
[2017-10-31 11:04] LABS: Prothrombin Time (Protime)PT. 13.6 SECONDS (11.7-14.9)
[2017-10-31 11:05] LABS: Partial Thromboplast Time 30.8 Seconds (24.1-36.2)
--- NOTE | 2017-10-31 11:10 | NURSING ---
REPORT GIVEN TO HEATHER BORGES IN SECURITIES SETTLEMENT PROCESSOR. PT EN ROUTE TO SECURITIES SETTLEMENT PROCESSOR WITH SLEEPING BAG FILLER. ILYA BORGES
[2017-10-31 11:11] LABS: Scan Indicated on CBC? Y/N NO
--- NOTE | 2017-10-31 12:01 | PCM.OPRPT ---
Problem List (1) Acute DVT (deep venous thrombosis) Status: Acute Qualifiers: DVT location: lower extremity Affected thrombotic vein of extremity: unspecified lower extremity distal vein Laterality: left Qualified Code(s): I82.4Z2 - Acute embolism and thrombosis of unspecified deep veins of left distal lower extremity Comment: L soleus, gastroc, peroneal veins Report of Operation Date of Procedure: 10/31/17 Pre-Operative Diagnosis: Left lower extremity deep venous thrombosis with evidence of proximal progression. Indication to anticoagulation with active vaginal bleeding Post-Operative Diagnosis: Same Surgery/Procedure Performed:: Inferior venacavogram with trans-right internal jugular inferior vena cava [place] filter placement. [place] DEL 900J. Lot number [id number]. Expiry date June 29, 2020 Description of Surgical Findings:: Timeout and informed consent was obtained. 72-year-old female was taken to the special procedures lab placed on the table. 50 mcg fentanyl 1 mg of Versed were given as intravenous sedation. The right neck was sterilely prepped and draped. Ultrasound was used to identify the right internal jugular vein. Under ultrasound guidance 2% lidocaine was instilled as a local anesthetic. A total 6 cc was used. Under ultrasound guidance a micropuncture needle was inserted in the right internal jugular vein followed by Seldinger wire advancement. The track was incised and dilated. Micropuncture sheath was inserted. An 035 J-wire was inserted a 5 Grenadian Max data was inserted using a 035 J-wire a 5 Grenadian universal flush catheter was placed into the distal inferior vena cava. Using Isovue contrast the rate of 15 cc a second for 25 cc a inferior venacavogram was obtained. The inferior venacavogram demonstrates a widely patent inferior vena cava with patent bilateral renal veins. There are location was marked. The vena cava was of adequate diameter for filter placement. There was no evidence of thrombus. The flush catheter was removed. The 5 Grenadian sheath was removed. Dilatation was performed with a 9 Grenadian sheath. The 8 Grenadian delivery mechanism was inserted under fluoroscopic control. The Vane filter was placed so that the apex would be close to the entrance of the renal veins. It was placed in an absolute upright position with the hook on clear on fast view. The deploying mechanism was removed. The sheath was removed. Hemostasis was intact. There was no evidence of any significant blood loss. Neuro dressings were applied. She was subsequently taken back to room septic condition without apparent complication. Impression Successful inferior vena cava filter placement. Normal inferior venacavogram. Andres Pathak M.D., F.A.C.S. Type of Anesthesia:: IV Sedation
--- NOTE | 2017-10-31 12:07 | PCM.DC.GS ---
Discharge Diet: Light diet - advance as tolerated - if you have questions about your diet instructions, please talk to you doctor. Discharge Activity: May Not Drive - for 1 week or while taking narcotic pain medicine. May shower in (days): 1 Lifting Restrictions: 10 pounds Call your doctor if your incision/area has: Continuous Slow Oozing, Sudden Increased Bleeding, Increased Pain/ Swelling, Increased Redness, Foul Smelling Discharge Call your doctor if you observe: Fever of 101 or Higher Suture Line Care: Avoid Pulling/Pushing, Avoid Pinching/Bending Additional Dressing/Incision Instructions:: You may leave your plastic right neck dressing in place for 2 days and then you may remove it. Allergies/Adverse Reactions: Allergies No Known Allergies Allergy (Verified 10/30/17 14:34) Medications to take at Discharge Aspirin 325 mg PO DAILY@0800 10/30/17 Ferrous Sulfate 325 mg PO TIDCM 10/30/17 Primary Care Physician: NOT,DEFINED [NON-STAFF] - Please Follow Up With: Andres Pathak MD - [phone] When: Please contact my office for filter removal when gynecology approves
--- NOTE | 2017-10-31 12:38 | CHAPLAIN ---
Type of Pastoral Visit ___ Initial Visit ___ Follow-up Visit ___ On-call Visit ___ General Patient Visit ___ Spiritual Assessment ___ Family Conference ___ Bereavement ___ Rapid Response ___ Code Blue _x__ Other (describe below) Pastoral Care Referral From _x__ Patient ___ Family ___ Nurse ___ Physician ___ Drug Abuse Social Worker ___ Toggle Press Operator ___ Other (describe below) Sacrament/Intervention ___ Active listening ___ Anointing ___ Yazdanism ___ Bereavement ___ Communion ___ Isadora exploration ___ ___ Life review ___ Prayer ___ Reconciliation ___ Sacrament of Sick ___ Supportive presence ___ Wedding _x__ Other (describe below) Pastoral Comments patient was out of room having a procedure done; spouse was in room and discussion followed the offer of presence and support; spouse had been a patient in this hospital and was remembered; pt and spouse are devout believers and welcome spiritual support; this couple is working toward becoming [place] citizens; much conversation revolved around adapting to the culture and weather;
[2017-10-31] MEDS: Ferrous Sulfate 325 MG Tablet PO ×2 (13:25→17:14)
--- NOTE | 2017-10-31 15:38 | PCM.DC ---
- Discharge Diagnoses Current Active Problems: Current Active and Chronic Problems Acute DVT (deep venous thrombosis) (Acute) L soleus, gastroc, peroneal veins Cervical cancer (Chronic) being staged/treated at [facility] PLANT RELIABILITY ENGINEER ONC Dr. Bain Anemia (Acute) You will use the following diet at home:: Other - Light diet, advance as tolerated. Discharge Activity: May Not Drive - for 1 week or while taking narcotic pain medicine. May shower in (days): 1 Lifting Restrictions: 10 pounds Call your doctor if your incision/area has: Continuous Slow Oozing, Sudden Increased Bleeding, Increased Pain/ Swelling, Increased Redness, Foul Smelling Discharge Call your doctor if you observe: Fever of 101 or Higher Suture Line Care: Avoid Pulling/Pushing, Avoid Pinching/Bending Additional Dressing/Incision Instructions:: You may leave your plastic right neck dressing in place for 2 days and then you may remove it. Additional Instructions: Hold home aspirin regimen until further advised by PLANT RELIABILITY ENGINEER oncology. Allergies/Adverse Reactions: Allergies No Known Allergies Allergy (Verified 10/30/17 14:34) Medications to take at Discharge Ferrous Sulfate 325 mg PO TIDCM 10/30/17 Primary Care Physician: Care Physician,No Primary [Primary Care Provider] - Please Follow Up With: Andres Pathak MD When: Please contact my office for filter removal when gynecology approves Please Follow Up With: Dr. Bain When: As previously scheduled. Please Follow Up With: Primary Care Physician When: 1 Week Proposed Discharge Date: 10/31/17
--- NOTE | 2017-10-31 15:41 | DCINST_ITS ---
- Discharge Diagnoses Current Active Problems: Current Active and Chronic Problems Acute DVT (deep venous thrombosis) (Acute) L soleus, gastroc, peroneal veins Cervical cancer (Chronic) being staged/treated at [facility] USER SUPPORT ANALYST SUPERVISOR ONC Dr. Bain Anemia (Acute) You will use the following diet at home:: Other - Light diet, advance as tolerated. Discharge Activity: May Not Drive - for 1 week or while taking narcotic pain medicine. May shower in (days): 1 Lifting Restrictions: 10 pounds Call your doctor if your incision/area has: Continuous Slow Oozing, Sudden Increased Bleeding, Increased Pain/ Swelling, Increased Redness, Foul Smelling Discharge Call your doctor if you observe: Fever of 101 or Higher Suture Line Care: Avoid Pulling/Pushing, Avoid Pinching/Bending Additional Dressing/Incision Instructions:: You may leave your plastic right neck dressing in place for 2 days and then you may remove it. Additional Instructions: Hold home aspirin regimen until further advised by USER SUPPORT ANALYST SUPERVISOR oncology. Allergies/Adverse Reactions: Allergies No Known Allergies Allergy (Verified 10/30/17 14:34) Medications to take at Discharge Ferrous Sulfate 325 mg PO TIDCM 10/30/17 Primary Care Physician: Care Physician,No Primary [Primary Care Provider] - Please Follow Up With: Andres Pathak MD When: Please contact my office for filter removal when gynecology approves Please Follow Up With: Dr. Bain When: As previously scheduled. Please Follow Up With: Primary Care Physician When: 1 Week Proposed Discharge Date: 10/31/17
--- NOTE | 2017-10-31 15:44 | PCM.DC.SUM ---
Discharge Date and Diagnosis Date of Admission: 10/30/17 Date of Discharge: 10/31/17 - Primary Discharge Diagnosis Active and Suspected Problems 1. Acute DVT left lower extremity 2. Acute on chronic blood loss anemia secondary to chronic vaginal bleeding secondary to underlying cervical cancer - Secondary Discharge Diagnosis Chronic Problems Cervical cancer (Chronic) being staged/treated at [facility] DIETARY AIDE TEACHER ONC Dr. Bain [facility] Course and Treatment Dr. Pathak- Surgery Operations: None Procedures: IVC filter placement Summary of Care Provided: The patient is a 72 year old F who presented to the emergency room 10/30/17 due to left lower extremity DVT. Patient was referred by DIETARY AIDE TEACHER oncology at [facility], Dr. Bain. She had an ultrasound of the left lower extremity proximally 1 week ago which showed a distal calf DVT. She followed up with serial ultrasounds which revealed extension of the left lower extremity clot. She was referred for IVC filter placement. Dr. Pathak was consulted and patient underwent IVC filter placement 10/31/17. She will follow up with Dr. Pathak for removal of IVC filter after approved by gynecology. Patient was noted to have acute on chronic blood loss anemia secondary to chronic vaginal bleeding related to cervical cancer. She received 2 units packed red blood cells. She will continue to hold home aspirin regimen until further advised by gynecology. Recommend further outpatient follow-up of CBC. She will continue iron supplementation at discharge. Hemoglobin stable at discharge, 9.7. Patient is stable for discharge with further follow-up with gynecology and primary care physician. Patient seen and examined prior to discharge. Heart rate regular rate and rhythm. Lungs clear. Abdomen soft, nontender. Neuro grossly intact. Vitals stable. Patient denies dizziness, lightheadedness. Denies chest pain, shortness of breath. Patient is stable for discharge home with the follow-up recommendations as noted above. This patient was seen by RADHA Lowe under the supervision of Dr. Navarro. Discharge Diet: Light diet - advance as tolerated - if you have questions about your diet instructions, please talk to you doctor. Discharge Activity: May Not Drive - for 1 week or while taking narcotic pain medicine. May shower in (days): 1 Call your doctor if your incision/area has: Continuous Slow Oozing, Sudden Increased Bleeding, Increased Pain/ Swelling, Increased Redness, Foul Smelling Discharge Call your doctor if you observe: Fever of 101 or Higher Suture Line Care: Avoid Pulling/Pushing, Avoid Pinching/Bending Additional Dressing/Incision Instructions:: You may leave your plastic right neck dressing in place for 2 days and then you may remove it. Home Medications: Medications to take at Discharge Ferrous Sulfate 325 mg PO TIDCM 10/30/17 Primary Care Physician: Care Physician,No Primary [Primary Care Provider] - Please Follow Up With: Andres Pathak MD When: Please contact my office for filter removal when gynecology approves Please Follow Up With: Dr. Bain When: As previously scheduled. Please Follow Up With: Primary Care Physician When: 1 Week Medical Necessity - Tobacco Use Smoking Status: Never smoker Meaningful Use Info Meaningful Use Diagnoses (Choose all that apply): None applicable
--- NOTE | 2017-10-31 15:52 | DS.PCM_ITS ---
Discharge Date and Diagnosis Date of Admission: 10/30/17 Date of Discharge: 10/31/17 - Primary Discharge Diagnosis Active and Suspected Problems 1. Acute DVT left lower extremity 2. Acute on chronic blood loss anemia secondary to chronic vaginal bleeding secondary to underlying cervical cancer - Secondary Discharge Diagnosis Chronic Problems Cervical cancer (Chronic) being staged/treated at [facility] CHANGE ATTENDANT ONC Dr. Bain [facility] Course and Treatment Dr. Pathak- Surgery Operations: None Procedures: IVC filter placement Summary of Care Provided: The patient is a 72 year old F who presented to the emergency room 10/30/17 due to left lower extremity DVT. Patient was referred by CHANGE ATTENDANT oncology at [facility], Dr. Bain. She had an ultrasound of the left lower extremity proximally 1 week ago which showed a distal calf DVT. She followed up with serial ultrasounds which revealed extension of the left lower extremity clot. She was referred for IVC filter placement. Dr. Pathak was consulted and patient underwent IVC filter placement 10/31/17. She will follow up with Dr. Pathak for removal of IVC filter after approved by gynecology. Patient was noted to have acute on chronic blood loss anemia secondary to chronic vaginal bleeding related to cervical cancer. She received 2 units packed red blood cells. She will continue to hold home aspirin regimen until further advised by gynecology. Recommend further outpatient follow-up of CBC. She will continue iron supplementation at discharge. Hemoglobin stable at discharge, 9.7. Patient is stable for discharge with further follow-up with gynecology and primary care physician. Patient seen and examined prior to discharge. Heart rate regular rate and rhythm. Lungs clear. Abdomen soft, nontender. Neuro grossly intact. Vitals stable. Patient denies dizziness, lightheadedness. Denies chest pain, shortness of breath. Patient is stable for discharge home with the follow-up recommendations as noted above. This patient was seen by RADHA Lowe under the supervision of Dr. Navarro. Discharge Diet: Light diet - advance as tolerated - if you have questions about your diet instructions, please talk to you doctor. Discharge Activity: May Not Drive - for 1 week or while taking narcotic pain medicine. May shower in (days): 1 Call your doctor if your incision/area has: Continuous Slow Oozing, Sudden Increased Bleeding, Increased Pain/ Swelling, Increased Redness, Foul Smelling Discharge Call your doctor if you observe: Fever of 101 or Higher Suture Line Care: Avoid Pulling/Pushing, Avoid Pinching/Bending Additional Dressing/Incision Instructions:: You may leave your plastic right neck dressing in place for 2 days and then you may remove it. Home Medications: Medications to take at Discharge Ferrous Sulfate 325 mg PO TIDCM 10/30/17 Primary Care Physician: Care Physician,No Primary [Primary Care Provider] - Please Follow Up With: Andres Pathak MD When: Please contact my office for filter removal when gynecology approves Please Follow Up With: Dr. Bain When: As previously scheduled. Please Follow Up With: Primary Care Physician When: 1 Week Medical Necessity - Tobacco Use Smoking Status: Never smoker Meaningful Use Info Meaningful Use Diagnoses (Choose all that apply): None applicable
== END 2017-10-31 15:40 | disposition home or self-care (01) ==
LOC: ED 18:03 → PCU 18:26
PROVIDERS: Family Medicine; Admitting Provider Internal Medicine; Emergency Provider Emergency Medicine; Visit Provider Internal Medicine
DX: I82.492 Acute embolism and thrombosis of other specified deep vein of left lower extremity (principal); D50.9 Iron deficiency anemia, unspecified; D62 Acute posthemorrhagic anemia; C53.9 Malignant neoplasm of cervix uteri, unspecified; Z45.2 Encounter for adjustment and management of vascular access device; Z79.899 Other long term (current) drug therapy; Z79.82 Long term (current) use of aspirin
CPT/HCPCS: 36415; 36430; 37191; 76937; 80048; 85025; 85027; 85610; 85730; 86850; 86900; 93005; 96360; 96361; 99152; 99218; 99284; J3010; J7030; P9016; Q9967; A4216; C1769; C1880; G0378

== ENCOUNTER → 2017-10-30 14:32 | Outpatient (CLI) | payer SELFPAY ==
--- NOTE | 2017-10-30 13:50 | VDLE_ITS ---
Reason For Study: DVT RIGHT LEFT CFV is compressible, spontaneous, phasic, GSV is normal. competent and demonstrates normal CFV is compressible, spontaneous, phasic, augmentation. competent, and demonstrates normal Procedure augmentation. Exam performed in department. FV is compressible, spontaneous, phasic, The exam was diagnostic. competent and demonstrates normal Pt whitman not have a PCP. Pt taked to ED. augmentation. POP V is compressible, spontaneous, phasic, competent and demonstrates normal augmentation. T/P Trunk is compressible. PTV is compressible. LT PerV is compressible. Soleus V, Gastroc V, and Peroneal V are all dilated and noncompressible. Extension from previous study done 10/23/2017. Interpretation Summary Deep venous thrombosis left soleus, gastrocnemius, and peroneal veins. Progression is noted from previous soleus DVT of 10/23/17. Patent and compressible left great saphenous vein. Normal flow patterns right common femoral vein. Ordering Physician: Adis Faye Referring Physician: Beckie Arshad Performed By: Ulysses Tello RVSendy
== END ==
PROVIDERS: Visit Provider Emergency Medicine
DX: I82.4Z2 Acute embolism and thrombosis of unspecified deep veins of left distal lower extremity (principal)
CPT/HCPCS: 93971

== ENCOUNTER 2017-12-30 09:02 | Emergency (ER) | payer SELFPAY ==
[2017-12-30 09:02] VITALS: BP 148/80; PULSE 104; RESP 17; TEMP 37.1; O2SAT 98; BMI 25.7
--- NOTE | 2017-12-30 09:13 | EKG12_ITS ---
Test Reason : STROKE Blood Pressure : / mmHG Vent. Rate : 098 BPM Atrial Rate : 098 BPM P-R Int : 138 ms QRS Dur : 072 ms QT Int : 352 ms P-R-T Axes : 062 059 048 degrees QTc Int : 449 ms Normal sinus rhythm Normal ECG Confirmed by LEEANN PHAM ([id number]), telegraph editor JOSE ENRIQUE HILLS ([id number]) on 01/08/2018 6:04:10 PM Referred By: STEPHEN Confirmed By:LEEANN PHAM
--- NOTE | 2017-12-30 09:13 | CT_ITS ---
STUDY: CT BRAIN WITHOUT CONTRAST REASON FOR EXAM: Female, 72 years old. Left-sided droop , known history of metastatic cervical cancer. RADIATION DOSAGE (If Supplied By Facility): CTDIvol = ( 44.99 ) mGy, DLP = ( 745.49 ) mGycm TECHNIQUE: Transaxial CT imaging of the brain was performed without administration of intravenous contrast material. Individualized dose optimization techniques were used for this CT. COMPARISON: None. FINDINGS: Normal soft tissue structures. Normal calvarium. There is significant based appearance of the right anterior horn question upper again medial by a rounded appearing mass central somewhat distorted appearing hyperdensity. The overall area measures 4.1 x 3.8 cm. The hyperdensity appears to be in a circular pattern around perhaps an underlying centrally located mass. There is midline shift at the level of the third ventricle. There is also trace amount of hyperdensity within the right posterior horn suggesting probable bleed into the right ventricle. There is also a somewhat rounded focus of low attenuation in the left frontal lobe which also suggests the possibility of underlying focus of vasogenic edema and possible Mass. Normal white matter tracts of the cerebral hemispheres. There is partial effacement of the right side of the page and basilar cistern. Normal cerebellum. Normal visualized paranasal sinuses. CT/Brain/Head without Contrast IMPRESSION: There is a 4.0 x 4.1 x 3.8 cm mass within the right side basal ganglia which the differential will include a focus of centrally located mass with central surrounding hemorrhage and edema. The differential would include the possibility of a hemorrhagic infarct or hypertensive bleed. There is also an area of low attenuation within the left frontal lobe which raises concern for another focus of mass and/or metastatic disease with edema. There are few scattered areas of low attenuation which may represent prior ischemic change in the white matter and/or small foci of metastasis. Recommend follow-up MRI and/or CT with contrast if clinically appropriate. N.B. : The above information has been verbally conveyed by Dorota Abrams MD to Elsa Dykes, Referring Physician, on 12/30/2017 09:31:51 (ET). Electronically Signed: Dorota Abrams MD at 9:36 EDT Tel , Service support , N.B. : The above information has been verbally conveyed by Dorota Abrams MD to Elsa Dykes, Referring Physician, on 12/30/2017 09:31:51 (ET).
--- NOTE | 2017-12-30 09:13 | RAD_ITS ---
STUDY: X-RAY CHEST REASON FOR EXAM: Female, 72 years old. Left-sided weakness history of metastatic disease TECHNIQUE: Single AP portable view of the chest. COMPARISON: None. FINDINGS: There is a left side Port-A-Cath cava. There are too numerous to count large masses throughout the lungs ranging in size from 5 to 1.5 cm. Normal size heart. Normal mediastinum and briana. Normal visualized pulmonary arteries. There is atherosclerotic calcification of the aortic arch with tortuosity. There is a levoscoliosis of the thoracic spine. There is a partially visualized inferior vena cava filter Normal visualized ribs, clavicles, and shoulders. RAD/Chest 1 View IMPRESSION: Too numerous to count pulmonary nodules highly suspicious for metastatic disease. Electronically Signed: Dorota Abrams MD at 9:38 EDT Tel , Service support ,
[2017-12-30 09:18] VITALS: PULSE 92; RESP 20; O2SAT 100; O2SAT 99
--- NOTE | 2017-12-30 09:26 | ED.VISSUMM ---
- ER Visit Summary Date of Service: 12/30/17 Chief Complaint: [Stroke] History of Present Illness: The patient is a 72 F [who presents the emergency department with left-sided weakness. Last known well was 11 PM last night. Her noted her to be incontinent of urine and have difficulty with ambulation at 5 AM. He noted her to not be using her left arm at 8 AM. She has a history of metastatic cervical cancer and was admitted to the hospital 2 weeks ago after her first chemo for neutropenia and anemia. She got blood transfusion and Neupogen. She has been very weak since that time.] Physical Examination: [] Pressure 148/80 pulse 92 respirations 2000% on nasal cannula WN WD NAD PERRL EOMI MMM NECK supple and nontender, no masses RRR no murmur rub or gallop, no peripheral edema, symmetric radial pulses CTAB no respiratory distress ABDOMEN is soft and nontender, normal bowel sounds, no distension, no rebound or guarding SKIN is warm and dry no rashes Alert and Oriented x3, NIH 10 for left-sided facial droop weakness of the left arm and left leg she also has some weakness of the right leg No lymphadenopathy Test Results: [] Emergency Department Course and Treatment: [Was initiated. CT of the head shows intracranial limit hemorrhage in the right basal ganglia. There is surrounding edema. Patient may have underlying mass. There is midline shift. Family requested [facility] for transfer. Transfer center was contacted. Given Decadron IV. She was given 25 of fentanyl and she is to started to complain of right-sided headache. Dr. Leija accepted the patient to [facility]. Is given Keppra for seizure prophylaxis] Treatment Plan: [] Disposition: [Transfer] Impression: [Intracranial hemorrhage in the right basal cannula with associated mass and midline shift] This note was generated with [employer] dictation software. It may contain incorrect words, spelling, and punctuation that were not noted in review of the chart prior to signing ED Disposition - Plan for ED Patient: Chief Complaint: Neuro S/Sx Referrals: Care Physician,No Primary [Primary Care Provider] -
--- NOTE | 2017-12-30 09:29 | ED.DCSUM_ITS ---
- ER Visit Summary Date of Service: 12/30/17 Chief Complaint: [Stroke] History of Present Illness: The patient is a 72 F [who presents the emergency department with left-sided weakness. Last known well was 11 PM last night. Her noted her to be incontinent of urine and have difficulty with ambulation at 5 AM. He noted her to not be using her left arm at 8 AM. She has a history of metastatic cervical cancer and was admitted to the hospital 2 weeks ago after her first chemo for neutropenia and anemia. She got blood transfusion and Neupogen. She has been very weak since that time.] Physical Examination: [] Pressure 148/80 pulse 92 respirations 2000% on nasal cannula WN WD NAD PERRL EOMI MMM NECK supple and nontender, no masses RRR no murmur rub or gallop, no peripheral edema, symmetric radial pulses CTAB no respiratory distress ABDOMEN is soft and nontender, normal bowel sounds, no distension, no rebound or guarding SKIN is warm and dry no rashes Alert and Oriented x3, NIH 10 for left-sided facial droop weakness of the left arm and left leg she also has some weakness of the right leg No lymphadenopathy Test Results: [] Emergency Department Course and Treatment: [Was initiated. CT of the head shows intracranial limit hemorrhage in the right basal ganglia. There is surrounding edema. Patient may have underlying mass. There is midline shift. Family requested [facility] for transfer. Transfer center was contacted. Given Decadron IV. She was given 25 of fentanyl and she is to started to complain of right-sided headache. Dr. Leija accepted the patient to [facility]. Is given Keppra for seizure prophylaxis] Treatment Plan: [] Disposition: [Transfer] Impression: [Intracranial hemorrhage in the right basal cannula with associated mass and midline shift] This note was generated with [employer] dictation software. It may contain incorrect words, spelling, and punctuation that were not noted in review of the chart prior to signing ED Disposition - Plan for ED Patient: Chief Complaint: Neuro S/Sx Referrals: Care Physician,No Primary [Primary Care Provider] -
[2017-12-30 09:31] LABS: Bedside Glucose 112 mg/dL (70-110)
[2017-12-30 09:43] VITALS: BP 165/89; PULSE 94; RESP 16; O2SAT 100
[2017-12-30 09:46] LABS: Absolute Lymphocyte Count 0.81 X10^3/ul (0.83-4.51); Absolute Neutrophil Count 4.2 X10^3/uL (2.0-7.7); Basophil# 0.01 X10^3/uL; Basophil% 0.2 % (0-1); Eosinophil# 0.06 X10^3/uL; Eosinophils% 1.1 % (0-5); Lymphocyte # 0.81 X10^3/ul (4.0); Lymphocyte % 14.6 % (19-41); Mean Corpuscular Hgb 25.3 pg (27.0-32.0); Mean Corpuscular Volume 81.5 fL (81-99); Mean Platelet Vol. 9.1 fl (6.2-12.0); Neutrophil # 4.15 X10^3/uL (2.7-7.7); Neutrophil % 74.9 % (47-70); POSITIVE COUNT NO; POSITIVE DIFFERENTIAL NO; Platelet Count 317 K/mm3 (150-450); RBC Distribution Width CV 23.4 % (11.6-14.6); RBC Distribution Width SD 68.1 fl (35.1-43.9); Red Blood Count 3.56 M/mm3 (4.2-5.4); White Blood Count 5.5 K/mm3 (4.4-11.0)
[2017-12-30 09:47] LABS: Differential Indicated SCAN CRITERIA MET; POSITIVE MORPHOLOGY YES
[2017-12-30 09:53] LABS: Prothrombin Time (Protime)PT. 13.2 SECONDS (11.7-14.9)
[2017-12-30 09:54] LABS: Partial Thromboplast Time 35.1 Seconds (24.1-36.2)
[2017-12-30 09:56] LABS: Anion Gap 9 (5-15); BUN 6 mg/dL (7-18); BUN/Creat Ratio 9.1 RATIO (10-20); Calcium,Total 8.4 mg/dL (8.5-10.1); Chloride 104 mmol/L (98-107); Creatinine, Serum 0.66 mg/dL (0.55-1.02); EST Glomerular Filtration Rate 94 mL/min (>60); Est Glom Filt Rate - Afr Amer 113 mL/min (>60); Glucose 101 mg/dL (74-106); Potassium 3.7 mmol/L (3.5-5.1); Sodium Level 142 mmol/L (136-145)
[2017-12-30 10:11] LABS: Anisocytosis 2+; Differential Comment SCANNED; Macrocytosis 1+; Microcytosis 1+
[2017-12-30] MEDS: fentaNYL 100 MCG/2 ML Ampul 25 MCG IV (10:15)
[2017-12-30] MEDS: levETIRAcetam IV 1,000 MG/100 ML BAG 400 MG IV (11:09)
[2017-12-30] MEDS: Naloxone 2 MG/2 ML Syringe 4 MG IV (11:10)
[2017-12-30] MEDS: Midazolam 5 MG/ML Syringe 8 MG IV (11:20)
[2017-12-30] MEDS: Rocuronium Bromide 50 MG/5 ML Vial 100 MG IV (11:20)
--- NOTE | 2017-12-30 11:46 | RAD_ITS ---
STUDY: X-RAY - ABDOMEN/PELVIS REASON FOR EXAM: Female, 72 years old. OG tube placement TECHNIQUE: Single AP view of the abdomen / pelvis. COMPARISON: None. FINDINGS: Lung bases are out of the [id number]. There is an NG tube present with the tip in the stomach. There is an extensive appearance of rounded calcifications throughout the pelvis. There is a Thurston catheter present. There are calcifications in the right upper quadrant which may represent gallstones. There is an inferior vena cava filter. RAD/Abdomen Single View (Portable) IMPRESSION: NG tube tip in the stomach. Extensive pelvic calcifications which may be associated fibroids and/or metastatic tumor. Electronically Signed: Dorota Abrams MD at 13:15 EDT Tel , Service support ,
--- NOTE | 2017-12-30 11:46 | RAD_ITS ---
STUDY: X-RAY CHEST REASON FOR EXAM: Female, 72 years old. ET tube placement TECHNIQUE: Single AP portable view of the chest. COMPARISON: December 30, 2017 chest x-ray FINDINGS: An endotracheal tube is present the tip is 4.5 cm above the eric. The NG tube in the stomach. There is a left side Port-A-Cath with the tip in the superior vena cava. There are too numerous to count pulmonary masses compatible with prostatic disease. There is borderline cardiomegaly. There is a thickened appearance of the bilateral briana. Normal visualized pulmonary arteries. There is atherosclerotic tortuosity of the aortic arch and descending thoracic aorta. There are diffuse degenerative changes of the visualized thoracic spine. Normal visualized ribs, clavicles, and shoulders. Is an IVC filter. RAD/Chest 1 View (Portable) IMPRESSION: Status post intubation ET tube 4.5 cm above the eric. Left-sided Port-A-Cath tip in the superior vena cava. NG tube tip in the stomach. Too Numerous to count pulmonary metastasis. Electronically Signed: Dorota Abrams MD at 13:48 EDT Tel , Service support ,
[2017-12-30 12:02] VITALS: BP 156/93; PULSE 91; RESP 18; O2SAT 100
--- NOTE | 2017-12-30 12:30 | ED.RN ---
Arrived in room after a code at 1110 to find the patient unresponsive and posturing. narcan given per md request without results. patient intubated at 1125. Transferring squad arrived as intubating the patient.
== END 2017-12-30 12:20 | disposition short-term general hospital (02) ==
PROVIDERS: Emergency Provider Emergency Medicine
DX: I63.8 Other cerebral infarction (principal); R29.810 Facial weakness; R53.1 Weakness; R22.0 Localized swelling, mass and lump, head; I10 Essential (primary) hypertension; C53.9 Malignant neoplasm of cervix uteri, unspecified; C79.9 Secondary malignant neoplasm of unspecified site
CPT/HCPCS: 31500; 51702; 70450; 71045; 74018; 80048; 82962; 84484; 85025; 85610; 85730; 93005; 96374; 96375; 99251; 99285; J7030; A4216; G0463